=== PATIENT | female | born 1995 ===

== ENCOUNTER 2020-12-11 11:20 | Outpatient (CLI) | payer OTHER | END 2020-12-11 11:27 | disposition home or self-care (01) | LOC: SONOGRAMA 11:20 | PROVIDERS: ATTEND Pathology Anatomic Pathology & Clinical Pathology | DX: E04.1 Nontoxic single thyroid nodule (principal) ==

== ENCOUNTER 2022-12-06 10:26 | Outpatient (CLI) | payer OTHER | END 2022-12-06 11:53 | disposition home or self-care (01) | LOC: NST 10:26 | PROVIDERS: ATTEND Obstetrics & Gynecology Gynecology | DX: Z34.83 Encounter for supervision of other normal pregnancy, third trimester (principal) ==

== ENCOUNTER 2022-12-06 13:00 | Inpatient (IN) | payer OTHER ==
[~2022-12-06] VITALS: Ht 170.2 cm; Wt 90.7 kg
[2022-12-15] MEDS ORDERED: PRENATAL CAPLE1 EAC1 PO (06:30)
[2022-12-15] MEDS ORDERED: CHOLINE SR300 MG PO (06:31)
== END 2022-12-17 12:47 | disposition home or self-care (01) | DRG 807 ==
LOC: LDR 12-15 05:15 → OB/GYN 12-15 21:16
PROVIDERS: ADMIT Obstetrics & Gynecology Gynecology; ATTEND Obstetrics & Gynecology Gynecology
PROC: 10E0XZZ Delivery of Products of Conception, External Approach (ICD-10-PCS; principal; 2022-12-15)
PROC: 0KQM0ZZ Repair Perineum Muscle, Open Approach (ICD-10-PCS; 2022-12-15)
PROC: 4A1HXCZ Monitoring of Products of Conception, Cardiac Rate, External Approach (ICD-10-PCS; 2022-12-15)
PROC: 3E033VJ Introduction of Other Hormone into Peripheral Vein, Percutaneous Approach (ICD-10-PCS; 2022-12-15)
DX: O70.1 Second degree perineal laceration during delivery (principal); Z37.0 Single live birth; Z3A.38 38 weeks gestation of pregnancy; Z20.822 Contact with and (suspected) exposure to COVID-19